=== PATIENT | female | born 1985 | race Caucasian/White ===

== ENCOUNTER 2017-02-14 12:48 | Inpatient (IN) | payer MEDICAID ==
[~2017-02-14] VITALS: Ht 165.1 cm; Wt 66.0 kg
[2017-02-14] MEDS ORDERED: SODIUM CHLORIDE FLUSH 10ML SYR IVF ONE (13:30)
[2017-02-14] MEDS ORDERED: SODIUM CHLORIDE 0.9% 1,000ML IVBOLUS ONE (13:30)
[2017-02-14] MEDS ORDERED: ONDANSETRON 2MG/ML, 2ML IVPush ONE (13:30)
[2017-02-14] MEDS ORDERED: DEXAMETHASONE 4 MG/ML, 1ML IV ONE (13:30)
[2017-02-14] MEDS ORDERED: CEFTRIAXONE PMX 1GM/50ML 50 ML IVPB ONE (13:30)
[2017-02-14] MEDS ORDERED: morphine SULFATE 10 MG/ML, 1ML IVPush ONE (13:30)
[2017-02-14 13:46] LABS: HEMATOCRIT 43.1 % (34.6-47.8); HEMOGLOBIN 14.4 g/dL (11.7-16.4); WHITE BLOOD COUNT 14.1 x10^3/uL (3.4-10)
[2017-02-14] MEDS ORDERED: DEXAMETHASONE 4 MG/ML, 5ML ONE (13:47)
[2017-02-14] MEDS ORDERED: MORPHINE SULFATE 4 MG/ML, 1ML ONE ×2 (13:47→15:04)
[2017-02-14] MEDS ORDERED: ONDANSETRON 2MG/ML, 2ML ONE (13:47)
[2017-02-14] MEDS ORDERED: CEFTRIAXONE PMX 1GM/50ML 50 ML ONE (13:47)
[2017-02-14 13:57] LABS: BLOOD UREA NITROGEN 14 mg/dL (7-18)
[2017-02-14] MEDS ORDERED: TRAZ50TA18 PO (14:01)
[2017-02-14] MEDS ORDERED: OMNIPAQUE 350 MG/ML, 75ML BOTTLE ONE (14:42)
[2017-02-14] MEDS ORDERED: MORPHINE SULFATE 4 MG/ML, 1ML IVPush ONE (15:00)
[2017-02-14] MEDS ORDERED: SODIUM CHLORIDE 0.9% 1,000 ML IV ONE (15:30)
[2017-02-14] MEDS ORDERED: CLINDAMYCIN PMX 600MG/50ML 50 ML IV ONE (18:00)
[2017-02-14] MEDS ORDERED: SODIUM CHLORIDE 0.9% 1,000 ML IV SCH (18:56)
[2017-02-14] MEDS ORDERED: BISACODYL 10 MG SUPP PR PRN (19:00)
[2017-02-14] MEDS ORDERED: POLYETHYLENE GLYCOL 17 GM PACKET PO PRN (19:00)
[2017-02-14] MEDS ORDERED: PROMETHAZINE 25 MG/ML, 1ML IM PRN (19:00)
[2017-02-14] MEDS ORDERED: ACETAMINOPHEN 325 MG TABLET PO PRN ×2 (19:00→20:30)
[2017-02-14] MEDS ORDERED: HYDROcodone/APAP 5/325 TABLET PO PRN (19:00)
[2017-02-14] MEDS ORDERED: morphine SULFATE 10 MG/ML, 1ML IVPush PRN (19:00)
[2017-02-14] MEDS ORDERED: ONDANSETRON 2MG/ML, 2ML IVPush PRN ×2 (19:00→20:30)
[2017-02-14] MEDS ORDERED: NICOTINE 21 MG/24 HR PATCH.TD24 TD SCH (19:00)
[2017-02-14] MEDS ORDERED: DOCUSATE 100 MG CAPSULE PO PRN (19:00)
[2017-02-14] MEDS ORDERED: LIDOCAINE/PF 1%, 30ML ONE (19:11)
[2017-02-14] MEDS ORDERED: THROMBIN 5,000 UNIT VIAL TP ONE (19:11)
[2017-02-14] MEDS ORDERED: NEOSPORIN OINT, 15GM ONE (19:11)
[2017-02-14] MEDS ORDERED: OXYMETAZOLINE NASAL SPRAY 0.05%, 15ML ONE (19:12)
[2017-02-14] MEDS ORDERED: COCAINE TOPICAL SOLN 4%, 4ML ONE (19:12)
[2017-02-14] MEDS ORDERED: EPINEPHRINE 1 MG/ML, 1ML ONE (19:12)
[2017-02-14] MEDS ORDERED: MIDAZOLAM 1 MG/ML, 2ML ONE ×2 (19:28→20:22)
[2017-02-14] MEDS ORDERED: FENTANYL PF 100 MCG/2ML ONE ×3 (19:28→20:22)
[2017-02-14] MEDS ORDERED: SUCCINYLCHOLINE 20 MG/ML, 10ML ONE (19:45)
[2017-02-14] MEDS ORDERED: ROCURONIUM 10 MG/ML ONE (19:45)
[2017-02-14] MEDS ORDERED: PROPOFOL 10 MG/ML, 20ML ONE (19:45)
[2017-02-14] MEDS ORDERED: LIDOCAINE 1%-EPI 1:100K, 30ML IM ONE (19:53)
[2017-02-14] MEDS ORDERED: CLINDAMYCIN 150 MG/ML, 6ML ONE (19:55)
[2017-02-14] MEDS ORDERED: ACETAMINOPHEN 650 MG/20.3 ML UDC ONE (20:22)
[2017-02-14] MEDS ORDERED: KETOROLAC 30 MG/1 ML ONE (20:22)
[2017-02-14] MEDS ORDERED: HYDROmorphone 2 MG/ML, 1ML ONE (20:22)
[2017-02-14] MEDS ORDERED: OXYcodone 5 MG/5 ML ORAL.SOL UDC ONE (20:23)
[2017-02-14] MEDS: FENTANYL PF 100 MCG/2ML IV PRN ×2 (20:25→20:42)
[2017-02-14] MEDS ORDERED: hydrALAzine 20 MG/ML, 1ML IV PRN (20:30)
[2017-02-14] MEDS ORDERED: KETOROLAC 30 MG/1 ML IV PRN ×2 (20:30→22:00)
[2017-02-14] MEDS ORDERED: MIDAZOLAM 1 MG/ML, 2ML IV PRN (20:30)
[2017-02-14] MEDS ORDERED: EPHEDRINE 50 MG/ML, 1ML IVPush PRN (20:30)
[2017-02-14] MEDS ORDERED: PROMETHAZINE 25 MG/ML, 1ML IV PRN (20:30)
[2017-02-14] MEDS ORDERED: LABETALOL 5MG/ML, 20ML IV PRN (20:30)
[2017-02-14] MEDS ORDERED: MEPERIDINE/PF 25MG/0.5ML IVPush PRN (20:30)
[2017-02-14] MEDS ORDERED: METOPROLOL 1 MG/ML, 5ML IV PRN (20:30)
[2017-02-14] MEDS ORDERED: ALBUTEROL SULFATE 2.5 MG/3 ML NPPB PRN (20:30)
[2017-02-14] MEDS ORDERED: OXYcodone 5 MG/5 ML ORAL.SOL UDC PO PRN (20:30)
[2017-02-14] MEDS ORDERED: HYDROcodone/APAP 7.5-325MG/15ML UDC PO PRN (20:30)
[2017-02-14] MEDS: HYDROmorphone 1 MG/ML, 1ML IV PRN ×6 (20:33→21:18)
[2017-02-14] MEDS ORDERED: TRAZODONE 50MG TABLET PO SCH (21:00)
[2017-02-14] MEDS ORDERED: HYDROmorphone 1 MG/ML, 1ML ONE (21:08)
[2017-02-14] MEDS: AMPICILLIN/SULBACTAM 3 GM in SODIUM CHLORIDE 0.9% 100 ML IV SCH (22:34)
[2017-02-14] MEDS: LACTATED RINGERS 1,000 ML IV SCH (22:35)
[2017-02-14 22:48] VITALS: BP 121/76
[2017-02-14 23:55] VITALS: BP 112/60
[2017-02-15 03:37] VITALS: BP 108/60
[2017-02-15] MEDS: ONDANSETRON 2MG/ML, 2ML IV PRN ×2 (03:50→08:37)
[2017-02-15] MEDS: CLINDAMYCIN PMX 900MG/50ML 50 ML IV SCH ×2 (03:56→12:00)
[2017-02-15 05:01] LABS: WHITE BLOOD COUNT 8.6 x10^3/uL (3.4-10)
[2017-02-15] MEDS: AMPICILLIN/SULBACTAM 3 GM in SODIUM CHLORIDE 0.9% 100 ML IV SCH ×2 (05:07→11:30)
[2017-02-15 05:09] LABS: ASPARTATE AMINO TRANSFERASE 28 U/L (15-37); BLOOD UREA NITROGEN 17 mg/dL (7-18)
[2017-02-15] MEDS: SODIUM CHLORIDE NASAL SPRAY 45ML BOTTLE NAS SCH ×2 (06:11→12:35)
[2017-02-15 07:15] VITALS: BP 111/61
[2017-02-15] MEDS ORDERED: SODIUM CHLORIDE FLUSH 10ML SYR IVF SCH (09:00)
[2017-02-15] MEDS ORDERED: ENOXAPARIN 40 MG/0.4 ML SQ SCH (09:00)
[2017-02-15] MEDS ORDERED: LACTOBACILLUS CHEW TABLET PO SCH (10:00)
[2017-02-15] MEDS: LACTATED RINGERS 1,000 ML IV SCH (10:30)
[2017-02-15 13:08] VITALS: BP 122/80
[2017-02-15] MEDS ORDERED: CLIN300C8 PO (13:19)
[2017-02-15] MEDS ORDERED: HYDR-3240 PO (13:19)
[2017-02-15] MEDS ORDERED: ACID1TAB7 PO (13:19)
[2017-02-15] MEDS ORDERED: SODI44SP NAS (13:19)
== END 2017-02-15 14:15 | disposition home or self-care (01) | DRG 854 ==
LOC: ED 17:12 → SUATTDRO 18:33 → EDIP 18:56 → 4NOR 21:30 → DCLOUNGE 02-15 13:52
PROVIDERS: ADMIT Internal Medicine; ATTEND Internal Medicine
PROC: 0W920ZZ Drainage of Face, Open Approach (ICD-10-PCS; principal; 2017-02-14 19:30)
DX: A41.9 Sepsis, unspecified organism (principal); E44.0 Moderate protein-calorie malnutrition; E87.1 Hypo-osmolality and hyponatremia; L02.01 Cutaneous abscess of face; L03.211 Cellulitis of face; J34.2 Deviated nasal septum; F17.210 Nicotine dependence, cigarettes, uncomplicated; G47.00 Insomnia, unspecified; Z80.1 Family history of malignant neoplasm of trachea, bronchus and lung; Z80.8 Family history of malignant neoplasm of other organs or systems; Z82.49 Family history of ischemic heart disease and other diseases of the circulatory system; Z90.89 Acquired absence of other organs; Z90.49 Acquired absence of other specified parts of digestive tract; Z68.24 Body mass index [BMI] 24.0-24.9, adult
CPT/HCPCS: 36415; 70487; 80048; 80053; 82040; 83605; 84702; 85025; 87040; 87070; 87075; 87077; 87186; 87205; 96361; 96365; 96375; 96376; J0171; J0295; J0696; J1100; J1170; J1650; J1885; J2250; J2405; J2704; J3010; J3490; Q9967; J0330; J2270; J7030; J7120